=== PATIENT | male | born 1950 | race Caucasian/White ===

== ENCOUNTER 2017-06-21 19:39 | Emergency (ER) | payer OTHER, MEDICARE ==
[2017-06-21] MEDS ORDERED: NA CHLORIDE 0.9% 2,000 ML ONE (20:38)
[2017-06-21] MEDS ORDERED: Levofloxacin 750mg IV 750 MG/150 ML BAG IV ONE (20:39)
[2017-06-21] MEDS ORDERED: VANCOMYCIN/NS 1 gm 1 GM/250 ML BAG ONE (20:39)
[2017-06-21] MEDS ORDERED: PIPER/TAZO/NS 2.25gm 4.50 GM/100 ML BAG ONE (20:39)
[2017-06-21 21:02] LABS: Absolute Lymphocytes (CBC) 1.7 K/uL (0.7-4.9); Absolute Monocytes 0.9 K/uL (0.1-1.3); Absolute Neutrophil 6.1 K/uL (1.8-8.0); Basophils % 0.6 % (0-1.3); Eosinophils % 2.3 % (0-4.4); Hematocrit 38.5 % (39.6-49.0); Lymphocytes % 18.8 % (15.3-44.8); MCH 27.4 pg (27.0-35.0); MCV 83.4 fL (80-100); MPV 9.4 fL (7.6-11.3); Monocytes % 9.7 % (3.3-12.3); RBC Red Blood Cell Count 4.62 M/uL (4.33-5.43)
--- NOTE | 2017-06-21 21:09 | RAD REPORT ---
EXAM DESCRIPTION: RAD - Foot Right 3 View - 06/21/2017 8:49 pm CLINICAL HISTORY: Diabetic foot ulcer, possible osteomyelitis, nonhealing wound COMPARISON: None. FINDINGS: No fracture, dislocation or periosteal reaction. Second toe has been resected. There are p ostsurgical or remodeling changes to the second metatarsal head. No active process in this region. No acute or destructive bone process seen. Soft tissues of the distal foot are edematous. No air or foreign body in the soft tissues. IMPRESSION: No acute or destructive bone process. No osteomyelitis changes are seen. Bone infection can exist prior to radiographic bone destruction. Soft tissue swelling with no air or foreign body.
[2017-06-21 21:21] LABS: Albumin 4.1 g/dL (3.2-5.5); Bilirubin Total 0.7 mg/dL (0.3-1.2); Protein, Total 7.8 g/dL (6.0-8.3)
--- NOTE | 2017-06-21 22:02 | EDPHYS ---
Physician Documentation [facility] Name: Martin Bettencourt Jr Age: 66 yrs Sex: Male : 1950 Arrival Date: 06/21/2017 Time: 19:43 Bed 18 Private MD: ED Physician Emigdio Muller HPI: 06/21 20:08 This 66 yrs old Male presents to ER via Ambulatory with complaints of Foot ps1 Infection (Wound Care PT). 20:08 The patient presents with an abrasion, pain, that is acute, tenderness, non healing ps1 wound. History of same. Now has redness and warmth of right foot. . The complaints affect the right foot. Onset: The symptoms/episode began/occurred 1 day(s) ago. Associated signs and symptoms: Pertinent positives: swelling, warmth, Pertinent negatives: fever. Severity of symptoms: At their worst the symptoms were moderate. The patient has experienced a previous episode. Pt of Dr. Jj ([facility]) in [place]. Has a chronic ulcer on ball of foot. Now has redness and swelling with skin flap on dorsum of foot. . Historical: - Allergies: 20:04 No Known Allergies; bb - Home Meds: 20:04 Glipizide Oral [Active]; Lovastatin Oral [Active]; levothyroxine oral [Active]; bb omeprazole 40 mg Oral cpDR 1 cap once daily [Active]; - PMHx: 20:04 Diabetes - NIDDM; GERD; High Cholesterol; bb - PSHx: 20:04 Cholecystectomy; toe amputation right foot; bb - Immunization history:: Adult Immunizations up to date. - Social history:: Smoking status: Patient/guardian denies using tobacco. ROS: 20:08 MS/extremity: Positive for erythema, pain, swelling, ulcer, of the ball of right foot. ps1 20:08 Constitutional: Negative for fever, chills, and weight loss, Eyes: Negative for injury, pain, redness, and discharge, ENT: Negative for injury, pain, and discharge, Cardiovascular: Negative for chest pain, palpitations, and edema, Respiratory: Negative for shortness of breath, cough, wheezing, and pleuritic chest pain, Abdomen/GI: Negative for abdominal pain, nausea, vomiting, diarrhea, and constipation, Back: Negative for injury and pain, MS/Extremity: Negative for injury and deformity, Neuro: Negative for headache, weakness, numbness, tingling, and seizure. Exam: 20:08 Constitutional: This is a well developed, well nourished patient who is awake, alert, ps1 and in no acute distress. Head/Face: Normocephalic, atraumatic. Eyes: Pupils equal round and reactive to light, extra-ocular motions intact. Lids and lashes normal. Conjunctiva and sclera are non-icteric and not injected. Chest/axilla: Normal chest wall appearance and motion. Nontender with no deformity. No lesions are appreciated. Cardiovascular: Regular rate and rhythm. No gallops, murmurs, or rubs. Normal PMI, no JVD. No pulse deficits. Respiratory: Lungs have equal breath sounds bilaterally, clear to auscultation and percussion. No rales, rhonchi or wheezes noted. No increased work of breathing, no retractions or nasal flaring. Abdomen/GI: Soft, non-tender, with normal bowel sounds. No distension or tympany. No guarding or rebound. No evidence of tenderness throughout. 20:08 MS/ Extremity: Pulses equal, no cyanosis. Neurovascular intact. Full, normal range of motion. Neuro: Awake and alert, GCS 15, oriented to person, place, time, and situation. Cranial nerves II-XII grossly intact. Sensory grossly intact. Psych: Awake, alert, with orientation to person, place and time. Behavior, mood, and affect are within normal limits. 20:08 Skin: cellulitis, that is moderate, on the dorsum of right foot, lesion(s), noted, and can be described as ulcerated, located on the ball of right foot. Vital Signs: 20:04 BP 153 / 76; Pulse 78; Resp 18 S; Temp 98.6(O); Pulse Ox 96% on R/A; Weight 106.59 kg bb (R); Height 5 ft. 11 in. (180.34 cm) (R); Pain 0/10; 21:02 BP 144 / 80; Pulse 67; Resp 18; Pulse Ox 95% on R/A; Pain 0/10; aa1 22:13 BP 157 / 77; Pulse 62; Resp 18; Pulse Ox 97% on R/A; aa1 06/22 00:57 BP 136 / 83; Pulse 60; Resp 16; Pulse Ox 97% on R/A; Pain 0/10; aa1 06/21 20:04 Body Mass Index 32.78 (106.59 kg, 180.34 cm) bb MDM: 06/21 20:08 Data reviewed: vital signs, nurses notes. ps1 20:15 Patient medically screened. ps1 06/21 20:15 Order name: CBC with Diff; Complete Time: 21:22 ps1 06/21 20:15 Order name: CMP; Complete Time: : ps1 06/21 20:15 Order name: Foot Right 3 View XRAY; Complete Time: 21:15 ps1 06/21 20:15 Order name: ESR; Complete Time: : ps1 06/21 20:15 Order name: Blood Culture Adult (2) ps1 Administered Medications: 21:03 Drug: NS 0.9% (20 ml/kg) 20 ml/kg Route: IV; Rate: 1 bolus; Site: right forearm; aa1 22:56 Follow up: IV Status: Completed infusion aa 21:10 Drug: vancoMYCIN 1 grams Route: IVPB; Infused Over: 2 hrs; Site: right forearm; aa1 23:36 Follow up: IV Status: Completed infusion aa1 21:10 Drug: LevaQUIN 750 mg Volume: 150 ml; Route: IVPB; Infused Over: 90 mins; Site: right aa1 forearm; 22:37 Follow up: IV Status: Completed infusion aa1 23:36 Drug: Zosyn 4.5 grams Route: IVPB; Infused Over: 60 mins; Site: right forearm; aa1 06/22 00:56 Follow up: IV Status: Completed infusion aa Disposition: 06/21/17 22:01 Discharged to Home. Impression: cellulitis of right foot. Non-healing wound of right foot. . - Condition is Stable. - Discharge Instructions: Cellulitis. - Prescriptions for Keflex 500 mg Oral Capsule - take 1 capsule by ORAL route every 6 hours for 10 days; 40 capsule. Bactrim DS 800- 160 mg Oral Tablet - take 1 tablet by ORAL route every 12 hours for 10 days; 20 tablet. - Medication Reconciliation Form, Thank You Letter, Antibiotic Education, Prescription Opioid Use form. - Follow up: Felice Chaidez MD; When: Upon discharge from the Emergency Department; Reason: Wound Recheck, Recheck today's complaints, Continuance of care. Follow up: Emergency Department; When: As needed; Reason: Worsening of condition, increased diameter of cellulitis. chills. . - Problem is an acute exacerbation. - Symptoms are unchanged. Signatures: Dispatcher [employer] Rashmi Potter, RN RN aa1 Stormy Gil RN RN bb Emigdio Muller MD MD ps1
--- NOTE | 2017-06-21 22:02 | ER ---
Nurse's Notes [facility] Name: Martin Bettencourt Jr Age: 66 yrs Sex: Male : 1950 Arrival Date: 06/21/2017 Time: 19:43 Bed 18 Private MD: Diagnosis: cellulitis of right foot. Non-healing wound of right foot. Presentation: 06/21 20:01 Presenting complaint: Patient states: he has diabetic foot ulcer on bottom of right bb foot which has been being treated for a year now has a new wound developing next to it and it is reddened. Transition of care: patient was not received from another setting of care. Onset of symptoms. Care prior to arrival: None. 20:01 Method Of Arrival: Ambulatory bb 20:01 Acuity: CRIS 3 bb Historical: - Allergies: 20:04 No Known Allergies; bb - Home Meds: 20:04 Glipizide Oral [Active]; Lovastatin Oral [Active]; levothyroxine oral [Active]; bb omeprazole 40 mg Oral cpDR 1 cap once daily [Active]; - PMHx: 20:04 Diabetes - NIDDM; GERD; High Cholesterol; bb - PSHx: 20:04 Cholecystectomy; toe amputation right foot; bb - Immunization history:: Adult Immunizations up to date. - Social history:: Smoking status: Patient/guardian denies using tobacco. Assessment: 22:03 Reassessment: Patient appears in no apparent distress at this time. Patient and/or aa1 family updated on plan of care and expected duration. Pain level reassessed. Patient is alert, oriented x 3, equal unlabored respirations, skin warm/dry/pink. Vancomycin and Levaquin infusing. Once complete pt to receive Zosyn and then d/c once Zosyn complete. 22:56 Reassessment: Patient appears in no apparent distress at this time. Patient and/or aa1 family updated on plan of care and expected duration. Pain level reassessed. Patient is alert, oriented x 3, equal unlabored respirations, skin warm/dry/pink. Vancomycin near completion. Will administer Zosyn once Vanc complete. Pt pending d/c upon completion of Zosyn. 06/22 00:57 Reassessment: Patient appears in no apparent distress at this time. Patient is alert, aa1 oriented x 3, equal unlabored respirations, skin warm/dry/pink. IV Zosyn complete. Discussed dic \T\ f/u instructions with pt; denies questions or concerns. Vital Signs: 06/21 20:04 BP 153 / 76; Pulse 78; Resp 18 S; Temp 98.6(O); Pulse Ox 96% on R/A; Weight 106.59 kg bb (R); Height 5 ft. 11 in. (180.34 cm) (R); Pain 0/10; 21:02 BP 144 / 80; Pulse 67; Resp 18; Pulse Ox 95% on R/A; Pain 0/10; aa1 22:13 BP 157 / 77; Pulse 62; Resp 18; Pulse Ox 97% on R/A; aa1 06/22 00:57 BP 136 / 83; Pulse 60; Resp 16; Pulse Ox 97% on R/A; Pain 0/10; aa1 06/21 20:04 Body Mass Index 32.78 (106.59 kg, 180.34 cm) bb ED Course: 06/21 19:43 Patient arrived in ED. ds1 20:02 Triage completed. bb 20:04 Eliseo Romano MD is Attending Physician. kdr 20:04 Arm band placed on Patient placed in an exam room, on a stretcher, on pulse oximetry. bb Family accompanied patient. 20:07 Attending Physician role handed off by Eliseo Roamno MD ps1 20:07 Emigdio Muller MD is Attending Physician. ps1 20:15 Rashmi Bustos, CHERELLE is Primary Nurse. aa1 20:45 X-ray completed. Portable x-ray completed in exam room. Patient tolerated procedure kc2 well. 20:49 Foot Right 3 View XRAY In Process Unspecified. EDMS 20:50 Initial lab(s) drawn, by ED staff, sent to lab. First set of blood cultures drawn by ED aa1 staff. Inserted saline lock: 20 gauge in right forearm, using aseptic technique. ,using aseptic technique. by isaac Brar Blood collected. 22:01 Felice Chaidez MD is Referral Physician. ps1 06/22 00:57 No provider procedures requiring assistance completed. IV discontinued, intact, aa1 bleeding controlled, No redness/swelling at site. Pressure dressing applied. Administered Medications: 06/21 21:03 Drug: NS 0.9% (20 ml/kg) 20 ml/kg Route: IV; Rate: 1 bolus; Site: right forearm; aa1 22:56 Follow up: IV Status: Completed infusion aa1 21:10 Drug: vancoMYCIN 1 grams Route: IVPB; Infused Over: 2 hrs; Site: right forearm; aa1 23:36 Follow up: IV Status: Completed infusion aa1 21:10 Drug: LevaQUIN 750 mg Volume: 150 ml; Route: IVPB; Infused Over: 90 mins; Site: right aa1 forearm; 22:37 Follow up: IV Status: Completed infusion aa1 23:36 Drug: Zosyn 4.5 grams Route: IVPB; Infused Over: 60 mins; Site: right forearm; aa1 06/22 00:56 Follow up: IV Status: Completed infusion aa1 Intake: 06/21 22:57 IV: 2000ml (IV Fluid); Total: 2000ml. aa1 Outcome: 22:01 Discharge ordered by . ps1 06/22 00:57 Discharged to home ambulatory, with family. aa1 Condition: good Discharge instructions given to patient, family, Instructed on discharge instructions, follow up and referral plans. medication usage, Demonstrated understanding of instructions, follow-up care, medications, Prescriptions given X 2. 00:58 Patient left the ED. aa1 Signatures: Dispatcher [employer] Rashmi Potter RN RN aa1 Eliseo Romano MD MD [facility] Jay, Caren ds1 Stormy Gil RN RN bb Carr, Kelsie kc2 Emigdio Muller MD MD ps1
[2017-06-22 01:02] VITALS: TEMP 98.6
[2017-06-22 01:05] VITALS: O2SAT 97
[2017-06-22 01:06] VITALS: BP 136/83
== END 2017-06-22 00:58 | disposition home or self-care (01) ==
LOC: ER 19:39
DX: L03.115 Cellulitis of right lower limb (principal); T81.4XXA Infection following a procedure, initial encounter; E11.9 Type 2 diabetes mellitus without complications; E78.00 Pure hypercholesterolemia, unspecified; Z89.421 Acquired absence of other right toe(s)
CPT/HCPCS: 36415; 73630; 80053; 85025; 85652; 87040 ×2; 96365; 96366; 96367; 96368; 99284; J2543; J3370; J7030

== ENCOUNTER 2017-10-30 16:08 | Emergency (ER) | payer OTHER, MEDICARE ==
--- NOTE | 2017-10-30 16:37 | EDPHYS ---
Physician Documentation [facility] Name: Martin Bettencourt Jr Age: 67 yrs Sex: Male : 1950 Arrival Date: 10/30/2017 Time: 16:12 Bed 20 Private MD: Orville Lawson ED Physician Zaire Paris HPI: 10/30 16:34 This 67 yrs old Male presents to ER via Ambulatory with complaints of Feet jr8 Swelling. 16:34 the patient presents with a swollen area of the right foot. Description: The affected jr8 area is small, erythematous, swollen, warm. Onset: The symptoms/episode began/occurred gradually, 2 day(s) ago. Possible cause(s): unknown. Associated signs and symptoms: The patient has no apparent associated signs or symptoms. Modifying factors: the symptoms are alleviated by nothing, the symptoms are aggravated by nothing. Severity of symptoms: At their worst the symptoms were mild, in the emergency department the symptoms are unchanged. The patient has experienced a previous episode. The patient has not recently seen a physician. Patient with diabetic neuropathy. Has healing wound on bottom of right foot. Stated that he has noticed swelling and erythema to top of foot. Has had this once before and ended up being cellulitis . Historical: - Allergies: 16:20 No Known Allergies; aj1 - Home Meds: 16:20 Glipizide Oral [Active]; levothyroxine oral [Active]; Lovastatin Oral [Active]; aj1 omeprazole 40 mg Oral cpDR 1 cap once daily [Active]; - PMHx: 16:20 Diabetes - NIDDM; GERD; High Cholesterol; renal insufficiency; aj1 - Immunization history:: Flu vaccine is up to date. - Social history:: Smoking status: Patient/guardian denies using tobacco. - Ebola Screening: : Patient denies travel to an Ebola-affected area in the 21 days before illness onset. ROS: 16:34 Eyes: Negative for injury, pain, redness, and discharge, ENT: Negative for injury, jr8 pain, and discharge, Neck: Negative for injury, pain, and swelling, Cardiovascular: Negative for chest pain, palpitations, and edema, Respiratory: Negative for shortness of breath, cough, wheezing, and pleuritic chest pain, Abdomen/GI: Negative for abdominal pain, nausea, vomiting, diarrhea, and constipation, Back: Negative for injury and pain, MS/Extremity: Negative for injury and deformity, Neuro: Negative for headache, weakness, numbness, tingling, and seizure. 16:34 Skin: Positive for erythema, swelling, of the right foot. Exam: 16:34 Eyes: Pupils equal round and reactive to light, extra-ocular motions intact. Lids and jr8 lashes normal. Conjunctiva and sclera are non-icteric and not injected. Cornea within normal limits. Periorbital areas with no swelling, redness, or edema. ENT: Nares patent. No nasal discharge, no septal abnormalities noted. Tympanic membranes are normal and external auditory canals are clear. Oropharynx with no redness, swelling, or masses, exudates, or evidence of obstruction, uvula midline. Mucous membranes moist. Neck: Trachea midline, no thyromegaly or masses palpated, and no cervical lymphadenopathy. Supple, full range of motion without nuchal rigidity, or vertebral point tenderness. No Meningismus. Cardiovascular: Regular rate and rhythm with a normal S1 and S2. No gallops, murmurs, or rubs. Normal PMI, no JVD. No pulse deficits. Respiratory: Lungs have equal breath sounds bilaterally, clear to auscultation and percussion. No rales, rhonchi or wheezes noted. No increased work of breathing, no retractions or nasal flaring. Abdomen/GI: Soft, non-tender, with normal bowel sounds. No distension or tympany. No guarding or rebound. No evidence of tenderness throughout. Back: No spinal tenderness. No costovertebral tenderness. Full range of motion. MS/ Extremity: Pulses equal, no cyanosis. Neurovascular intact. Full, normal range of motion. Neuro: Awake and alert, GCS 15, oriented to person, place, time, and situation. Cranial nerves II-XII grossly intact. Motor strength 5/5 in all extremities. Sensory grossly intact. Cerebellar exam normal. Normal gait. 16:34 Skin: cellulitis, that is mild, well demarcated, on the lateral dorsum right foot with streaking . Vital Signs: 16:20 BP 127 / 72; Pulse 77; Resp 18; Temp 99.2(TE); Pulse Ox 98% on R/A; Height 5 ft. 11 in. aj1 (180.34 cm) (R); Pain 0/10; MDM: 16:23 Patient medically screened. jr8 16:34 Data reviewed: vital signs, nurses notes, and as a result, I will discharge patient. jr8 Data interpreted: Pulse oximetry: on room air is 98 %. Interpretation: normal. Counseling: I had a detailed discussion with the patient and/or guardian regarding: the historical points, exam findings, and any diagnostic results supporting the discharge/admit diagnosis, the need for outpatient follow up, a family practitioner, to return to the emergency department if symptoms worsen or persist or if there are any questions or concerns that arise at home. Administered Medications: No medications were administered Disposition: 10/31 14:32 Co-signature as Attending Physician, Zaire Paris MD I agree with the assessment and kelvin plan of care. Disposition: 10/30/17 16:36 Discharged to Home. Impression: Cellulitis of right lower limb. - Condition is Stable. - Discharge Instructions: Cellulitis, Adult. - Prescriptions for Bactrim DS 800- 160 mg Oral Tablet - take 1 tablet by ORAL route every 12 hours for 10 days; 20 tablet. - Medication Reconciliation Form, Thank You Letter, Antibiotic Education, Prescription Opioid Use form. - Follow up: Orville Lawson DO; When: 5 - 6 days; Reason: Recheck today's complaints, Continuance of care, Re-evaluation by your physician. - Problem is new. - Symptoms are unchanged. Signatures: Sari Ortega, RN RN aj1 Zaire Paris MD MD cha Munoz, Edgar, PREVENTION COORDINATOR PREVENTION COORDINATOR em Guy Canales PA PA jr8 Corrections: (The following items were deleted from the chart) 10/30 16:37 16:36 10/30/2017 16:36 Discharged to Home. Impression: Cellulitis of left lower limb. jr8 Condition is Stable. Forms are Medication Reconciliation Form, Thank You Letter, Antibiotic Education, Prescription Opioid Use. Follow up: Orville Lawson; When: 5 - 6 days; Reason: Recheck today's complaints, Continuance of care, Re-evaluation by your physician. Problem is new. Symptoms are unchanged. jr8 17:08 16:37 10/30/2017 16:36 Discharged to Home. Impression: Cellulitis of right lower limb. em Condition is Stable. Forms are Medication Reconciliation Form, Thank You Letter, Antibiotic Education, Prescription Opioid Use. Follow up: Orville Lawson; When: 5 - 6 days; Reason: Recheck today's complaints, Continuance of care, Re-evaluation by your physician. Problem is new. Symptoms are unchanged. jr8
--- NOTE | 2017-10-30 16:37 | ER ---
Nurse's Notes [facility] Name: Martin Bettencourt Jr Age: 67 yrs Sex: Male : 1950 Arrival Date: 10/30/2017 Time: 16:12 Bed 20 Private MD: Orville Lawson Diagnosis: Cellulitis of right lower limb Presentation: 10/30 16:15 Presenting complaint: Patient states: "My foot looks to me like it's swelling. I was in aj1 here several months ago for the same thing. I've had this hole in the bottom of my foot for a year and they keep cutting on it. I don't want to end up with a bone infection. I've already had one and I wanted to get antibiotics before this get that bad." Reports fever. Transition of care: patient was not received from another setting of care. Onset of symptoms was October 30, 2017. Risk Assessment: Do you want to hurt yourself or someone else? Patient reports no desire to harm self or others. Initial Sepsis Screen: Does the patient meet any 2 criteria? No. Patient's initial sepsis screen is negative. Does the patient have a suspected source of infection? No. Patient's initial sepsis screen is negative. Care prior to arrival: None. 16:15 Method Of Arrival: Ambulatory [facility] 16:15 Acuity: CRIS 3 aj1 Triage Assessment: 16:20 General: Appears in no apparent distress. comfortable, Behavior is calm, cooperative, aj1 appropriate for age. Pain: Denies pain. Neuro: Level of Consciousness is awake, alert, obeys commands. Cardiovascular: Patient's skin is warm and dry. Respiratory: Airway is patent Respiratory effort is even, unlabored, Respiratory pattern is regular, symmetrical. Historical: - Allergies: 16:20 No Known Allergies; aj1 - Home Meds: 16:20 Glipizide Oral [Active]; levothyroxine oral [Active]; Lovastatin Oral [Active]; aj1 omeprazole 40 mg Oral cpDR 1 cap once daily [Active]; - PMHx: 16:20 Diabetes - NIDDM; GERD; High Cholesterol; renal insufficiency; aj1 - Immunization history:: Flu vaccine is up to date. - Social history:: Smoking status: Patient/guardian denies using tobacco. - Ebola Screening: : Patient denies travel to an Ebola-affected area in the 21 days before illness onset. Screenin:40 Abuse screen: Denies threats or abuse. Nutritional screening: No deficits noted. iw Tuberculosis screening: No symptoms or risk factors identified. Fall Risk None identified. Assessment: 16:40 General: Appears in no apparent distress. comfortable, Behavior is calm, cooperative. em Pain: Denies pain. Neuro: Level of Consciousness is awake, alert, obeys commands, Oriented to person, place, time, situation. Cardiovascular: Capillary refill < 3 seconds Patient's skin is warm and dry. Respiratory: Airway is patent Respiratory effort is even, unlabored, Respiratory pattern is regular, symmetrical. GI: Abdomen is flat. : No signs and/or symptoms were reported regarding the genitourinary system. EENT: No signs and/or symptoms were reported regarding the EENT system. Derm: Skin is pink, warm \\T\\ dry. Decubitus located on right foot approximately 1.5 cm to 2.5 cm is unstageable. bed has fibrin present is draining none noted. Musculoskeletal: Range of motion: intact in all extremities. Vital Signs: 16:20 BP 127 / 72; Pulse 77; Resp 18; Temp 99.2(TE); Pulse Ox 98% on R/A; Height 5 ft. 11 in. aj1 (180.34 cm) (R); Pain 0/10; ED Course: 16:12 Patient arrived in ED. mr 16:12 Orville Lawson DO is Private Physician. mr 16:19 Triage completed. aj1 16:20 Arm band placed on Patient placed in an exam room. aj1 16:23 Guy Canales PA is PHCP. jr8 16:23 Zaire Paris MD is Attending Physician. jr8 16:36 Orville Lawson DO is Referral Physician. jr8 16:40 Patient has correct armband on for positive identification. Placed in gown. Bed in low iw position. Call light in reach. Adult w/ patient. 16:40 No provider procedures requiring assistance completed. Patient did not have IV access iw during this emergency room visit. 17:02 Tianna Atkins, RN is Primary Nurse. iw Administered Medications: No medications were administered Outcome: 16:36 Discharge ordered by . jr8 17:04 Discharged to home ambulatory. iw 17:04 Condition: good 17:04 Discharge instructions given to patient, family, Instructed on discharge instructions, follow up and referral plans. medication usage, Demonstrated understanding of instructions, follow-up care, medications, Prescriptions given X 1. 17:08 Patient left the ED. em Signatures: Sari Ortega, RN RN aj1 Smiley Dejesus mr Jones, Dakota, SUPERVISOR SHOP SUPERVISOR SHOP em Tianna Atkins RN RN iw Guy Canales PA PA jr8
[2017-10-30 17:18] VITALS: BP 127/72; TEMP 99.2; O2SAT 98
== END 2017-10-30 17:08 | disposition home or self-care (01) ==
LOC: ER 16:08
DX: L03.115 Cellulitis of right lower limb (principal); E11.9 Type 2 diabetes mellitus without complications
CPT/HCPCS: 99282

== ENCOUNTER 2017-11-08 14:58 | Inpatient (IN) | payer OTHER, MEDICARE ==
--- NOTE | 2017-11-08 16:44 | EDPHYS ---
Physician Documentation [facility] Name: Martin Bettencourt Jr Age: 67 yrs Sex: Male : 1950 Arrival Date: 11/08/2017 Time: 15:02 Bed 18 Private MD: Orville Lawson ED Physician Pablo Jimenez HPI: 11/08 19:48 This 67 yrs old Male presents to ER via Ambulatory with complaints of TOE tw4 INFECTION. 19:48 The patient presents with cellulitis of the right foot, the patient presents with a tw4 swollen area of the right fourth toe and right fifth toe. Description: The affected area is moderate sized, confluent, draining, erythematous. Onset: The symptoms/episode began/occurred 1 week(s) ago. Possible cause(s): unknown. Associated signs and symptoms: The patient has no apparent associated signs or symptoms. Modifying factors: the symptoms are alleviated by nothing, the symptoms are aggravated by nothing. Severity of symptoms: At their worst the symptoms were moderate, in the emergency department the symptoms are unchanged. The patient has not experienced similar symptoms in the past. Historical: - Allergies: 15:20 No Known Allergies; aj1 - Home Meds: 15:20 Cipro Oral [Active]; Glipizide Oral [Active]; levothyroxine oral [Active]; Lovastatin aj1 Oral [Active]; omeprazole 40 mg Oral cpDR 1 cap once daily [Active]; - PMHx: 15:20 Diabetes - NIDDM; GERD; High Cholesterol; renal insufficiency; aj1 - Immunization history:: Flu vaccine is up to date. - Social history:: Smoking status: Patient/guardian denies using tobacco. - Ebola Screening: : Patient denies travel to an Ebola-affected area in the 21 days before illness onset. ROS: 19:48 Constitutional: Negative for fever, chills, and weight loss, Cardiovascular: Negative tw4 for chest pain, palpitations, and edema, Respiratory: Negative for shortness of breath, cough, wheezing, and pleuritic chest pain, Abdomen/GI: Negative for abdominal pain, nausea, vomiting, diarrhea, and constipation, Back: Negative for injury and pain. 19:48 MS/extremity: Positive for pain, of the right fourth toe and right fifth toe. Exam: 19:48 Constitutional: This is a well developed, well nourished patient who is awake, alert, tw4 and in no acute distress. Head/Face: Normocephalic, atraumatic. Chest/axilla: Normal chest wall appearance and motion. Nontender with no deformity. No lesions are appreciated. Cardiovascular: Regular rate and rhythm with a normal S1 and S2. No gallops, murmurs, or rubs. Normal PMI, no JVD. No pulse deficits. Respiratory: Lungs have equal breath sounds bilaterally, clear to auscultation and percussion. No rales, rhonchi or wheezes noted. No increased work of breathing, no retractions or nasal flaring. Abdomen/GI: Soft, non-tender, with normal bowel sounds. No distension or tympany. No guarding or rebound. No evidence of tenderness throughout. 19:48 Musculoskeletal/extremity: Extremities: noted in the right fourth toe and right fifth toe: erythema, pain. Vital Signs: 15:20 BP 127 / 69; Pulse 79; Resp 18; Temp 98.9; Pulse Ox 95% on R/A; Weight 104.33 kg; aj1 Height 5 ft. 11 in. (180.34 cm); Pain 0/10; 17:18 BP 127 / 64; Pulse 73; Resp 16; Pulse Ox 98% on R/A; mh5 19:18 BP 127 / 72; Pulse 74; Resp 16; Pulse Ox 97% on R/A; mt 20:12 BP 126 / 68; Pulse 76; Resp 18; Temp 98.4(O); Pulse Ox 97% on R/A; Pain 0/10; ea 15:20 Body Mass Index 32.08 (104.33 kg, 180.34 cm) aj1 MDM: 15:37 Patient medically screened. tw4 19:52 Differential diagnosis: abscess, allergic reaction, cellulitis. Data reviewed: vital tw4 signs, nurses notes. Data interpreted: personnel monitor: rhythm is normal sinus rhythm, Pulse oximetry: Interpretation: normal. Counseling: I had a detailed discussion with the patient and/or guardian regarding: the historical points, exam findings, and any diagnostic results supporting the discharge/admit diagnosis, lab results, radiology results. Physician consultation: Dario Beltrán MD and will see patient in inpatient room, would like consultation with Dr. Dr Chaidez, would like medications started, Zosyn, Vancomycin. Admission orders: after a detailed discussion of the patient's condition and case, the admit orders are written by va. 11/08 16:39 Order name: Basic Metabolic Panel tw4 11/08 16:39 Order name: Blood Culture Adult (2) tw4 11/08 16:39 Order name: Lactate; Complete Time: 19:12 tw4 11/08 16:39 Order name: LFT's; Complete Time: 19:12 tw4 11/08 16:39 Order name: Sed Rate; Complete Time: 19:12 tw4 11/08 16:39 Order name: C-Reactive Protein; Complete Time: 19:12 tw4 11/08 16:39 Order name: Accucheck; Complete Time: 17:15 tw4 11/08 16:40 Order name: Basic Metabolic Panel; Complete Time: 19:12 EDMS 11/08 16:40 Order name: Foot Left 3 View XRAY tw4 11/08 17:40 Order name: RAD; Complete Time: 19:12 EDMS 11/08 17:59 Order name: CBC with Diff bd 11/08 18:13 Order name: CBC with Automated Diff; Complete Time: 19:12 EDMS 11/08 16:39 Order name: Cardiac monitoring; Complete Time: 17:15 tw4 11/08 16:39 Order name: IV Saline Lock - Large Bore; Complete Time: 17:15 tw4 11/08 16:39 Order name: Labs collected and sent; Complete Time: 17:15 tw4 Administered Medications: 17:15 Drug: Zosyn 3.375 grams Route: IVPB; Infused Over: 60 mins; Site: left forearm; ch 18:15 Follow up: IV Status: Completed infusion; IV Intake: 100ml ch 19:00 Drug: vancoMYCIN 1 grams Route: IVPB; Infused Over: 2 hrs; Site: left forearm; ch 20:14 Follow up: Response: No adverse reaction; IV Status: Infusion continued upon admission ea Disposition: 11/08/17 16:44 Hospitalization ordered by Dario Beltrán for Inpatient Admission. Preliminary diagnosis is Cellulitis of right lower limb. - Bed requested for Telemetry/MedSurg (Inpatient). - Status is Inpatient Admission. ea - Condition is Fair. - Problem is new. - Symptoms are unchanged. UTI on Admission? No Signatures: Dispatcher [employer] EDCeci Parkinson RN RN Sari Alvarado, RN RN aj1 Grace Harris, RN RN df Lizz Garcia RN RN ea Wadley, Terrence, MD MD tw4 Corrections: (The following items were deleted from the chart) 19:14 16:44 Hospitalization Ordered by Dario Beltrán MD for Inpatient Admission. Preliminary df diagnosis is Cellulitis of right lower limb. Bed requested for Telemetry/MedSurg (Inpatient). Status is Inpatient Admission. Condition is Fair. Problem is new. Symptoms are unchanged. UTI on Admission? No. tw4 20:14 19:14 11/08/2017 16:44 Hospitalization Ordered by Dario Beltrán MD for Inpatient ea Admission. Preliminary diagnosis is Cellulitis of right lower limb. Bed requested for Telemetry/MedSurg (Inpatient). Status is Inpatient Admission. Condition is Fair. Problem is new. Symptoms are unchanged. UTI on Admission? No. df
--- NOTE | 2017-11-08 16:44 | ER ---
Nurse's Notes [facility] Name: Martin Bettencourt Jr Age: 67 yrs Sex: Male : 1950 Arrival Date: 11/08/2017 Time: 15:02 Bed 18 Private MD: Orville Lawson Diagnosis: Cellulitis of right lower limb Presentation: 11/08 15:17 Presenting complaint: Patient states: He saw Dr. Chaidez today at the wound healing [facility] and was told that the infection in his foot was worse and he suspected that the infection may have gone to the bone. Denies pain. Transition of care: patient was not received from another setting of care. Onset of symptoms was November 08, 2017. Risk Assessment: Do you want to hurt yourself or someone else? Patient reports no desire to harm self or others. Initial Sepsis Screen: Does the patient meet any 2 criteria? No. Patient's initial sepsis screen is negative. Does the patient have a suspected source of infection? Yes: Skin breakdown/wound. Care prior to arrival: None. 15:17 Method Of Arrival: Ambulatory [facility] 15:17 Acuity: CRIS 3 [facility] Triage Assessment: 15:20 General: Appears in no apparent distress. comfortable, Behavior is calm, cooperative, aj1 appropriate for age. Pain: Denies pain. Neuro: Level of Consciousness is awake, alert, obeys commands. Cardiovascular: Patient's skin is warm and dry. Respiratory: Airway is patent Respiratory effort is even, unlabored, Respiratory pattern is regular, symmetrical. Historical: - Allergies: 15:20 No Known Allergies; aj1 - Home Meds: 15:20 Cipro Oral [Active]; Glipizide Oral [Active]; levothyroxine oral [Active]; Lovastatin aj1 Oral [Active]; omeprazole 40 mg Oral cpDR 1 cap once daily [Active]; - PMHx: 15:20 Diabetes - NIDDM; GERD; High Cholesterol; renal insufficiency; aj1 - Immunization history:: Flu vaccine is up to date. - Social history:: Smoking status: Patient/guardian denies using tobacco. - Ebola Screening: : Patient denies travel to an Ebola-affected area in the 21 days before illness onset. Screenin:30 Abuse screen: Denies threats or abuse. Denies injuries from another. Nutritional ch screening: No deficits noted. Tuberculosis screening: No symptoms or risk factors identified. Fall Risk None identified. Assessment: 17:09 Reassessment: Patient appears in no apparent distress at this time. Patient and/or family updated on plan of care and expected duration. Pain level reassessed. Patient is alert, oriented x 3, equal unlabored respirations, skin warm/dry/pink. Derm: Wound noted Wound is pt has dime sized open wound with pink granular tissue protruding from it. pt has redness and moderate amount of swelling to entire lateral side of foot, and top of foot. no streaking. 18:30 Reassessment: Patient appears in no apparent distress at this time. No changes from previously documented assessment. Patient and/or family updated on plan of care and expected duration. Pain level reassessed. Patient is alert, oriented x 3, equal unlabored respirations, skin warm/dry/pink. Patient denies pain at this time. 19:30 General: Appears in no apparent distress. Behavior is calm, cooperative, appropriate ea for age. Pain: Denies pain. Neuro: Level of Consciousness is awake, alert, obeys commands, Oriented to person, place, time, situation. Cardiovascular: Patient's skin is warm and dry. Respiratory: Airway is patent Respiratory effort is even, unlabored, Respiratory pattern is regular, symmetrical. GI: No signs and/or symptoms were reported involving the gastrointestinal system. : No signs and/or symptoms were reported regarding the genitourinary system. EENT: No signs and/or symptoms were reported regarding the EENT system. Derm: Wound noted Wound is redness and swelling to lateral side of foot and top of foot. Derm: Reports he noticed the redness and swelling started a week ago. 20:05 Reassessment: Patient and/or family updated on plan of care and expected duration. Pain ea level reassessed. Patient is alert, oriented x 3, equal unlabored respirations, skin warm/dry/pink. Report called to Cristina VILLARREAL on second floor. Vital Signs: 15:20 BP 127 / 69; Pulse 79; Resp 18; Temp 98.9; Pulse Ox 95% on R/A; Weight 104.33 kg; aj1 Height 5 ft. 11 in. (180.34 cm); Pain 0/10; 17:18 BP 127 / 64; Pulse 73; Resp 16; Pulse Ox 98% on R/A; mh5 19:18 BP 127 / 72; Pulse 74; Resp 16; Pulse Ox 97% on R/A; mt 20:12 BP 126 / 68; Pulse 76; Resp 18; Temp 98.4(O); Pulse Ox 97% on R/A; Pain 0/10; ea 15:20 Body Mass Index 32.08 (104.33 kg, 180.34 cm) aj1 ED Course: 15:02 Patient arrived in ED. rg4 15:02 Orville Lawson DO is Private Physician. rg4 15:19 Triage completed. aj1 15:21 Arm band placed on Patient placed in an exam room. aj1 15:34 Ceci Carson, RN is Primary Nurse. ch 15:37 Pablo Jimenez MD is Attending Physician. tw4 16:43 Dario Beltrán MD is Hospitalizing Provider. tw4 16:50 Initial lab(s) drawn, by vt, sent to lab. First set of blood cultures drawn. ch 17:09 Inserted saline lock: 18 gauge in left forearm, using aseptic technique. Blood ch collected. 17:24 X-ray completed. Portable x-ray completed in exam room. Patient tolerated procedure ag1 well. 18:30 Patient has correct armband on for positive identification. Bed in low position. Call light in reach. Side rails up X 1. Adult w/ patient. Pulse ox on. NIBP on. 18:30 No provider procedures requiring assistance completed. ch 19:40 Lizz Garcia, CHERELLE is Primary Nurse. ea 20:05 Patient admitted, IV remains in place. ea Administered Medications: 17:15 Drug: Zosyn 3.375 grams Route: IVPB; Infused Over: 60 mins; Site: left forearm; ch 18:15 Follow up: IV Status: Completed infusion; IV Intake: 100ml ch 19:00 Drug: vancoMYCIN 1 grams Route: IVPB; Infused Over: 2 hrs; Site: left forearm; ch 20:14 Follow up: Response: No adverse reaction; IV Status: Infusion continued upon admission ea Intake: 18:15 IV: 100ml; Total: 100ml. ch Outcome: 16:44 Decision to Hospitalize by Provider. tw4 20:06 Condition: stable ea 20:06 Instructed on the need for admit, Demonstrated understanding of instructions. 20:13 Admitted to Med/surg accompanied by tech, room 213, Report called to Cristina VILLARREAL ea 20:14 Patient left the ED. nelson Signatures: Ceci Carson, RN Sari Silveira ch RN RN ngoc1 Roberta Rene1 Tracy Villasenor 4 Juan, Smiley 5 Michael, [facility] Lizz Garcia RN Pablo Benton ea, MD MD tw4
[2017-11-08] MEDS ORDERED: VANCOMYCIN 1 GM/250 ML BAG ONE ×2 (17:21→23:26)
[2017-11-08] MEDS ORDERED: PIPER/TAZO/NS 3.375gm 3.375 GM/100 ML BAG ONE (17:21)
--- NOTE | 2017-11-08 17:39 | RAD REPORT ---
EXAM DESCRIPTION: RAD - Foot Left 3 View - 11/08/2017 5:28 pm CLINICAL HISTORY: Soft tissue wound,, possible osteomyelitis COMPARISON: Right foot May 2017 FINDINGS: Bone destructive changes are present involving the head and distal shaft fifth metatarsal. There is subtle irregularity of the base fifth proximal phalanx. Soft tissue wound is seen adjacent to the fifth MTP joint. No air or foreign body. Postsurgical change noted to the second metatarsal head with second toe resection. IMPRESSION: Bone destructive osteomyelitis distal fifth metatarsal and very likely within the base o f the fifth proximal phalanx.
[2017-11-08 18:13] LABS: Absolute Lymphocytes (CBC) 1.3 K/uL (0.7-4.9); Absolute Monocytes 0.9 K/uL (0.1-1.3); Basophils % 0.4 % (0-1.3); Eosinophils % 0.6 % (0-4.4); Hematocrit 37.5 % (39.6-49.0); Lymphocytes % 15.7 % (15.3-44.8); MCH 27.6 pg (27.0-35.0); MCV 85.9 fL (80-100); MPV 9.1 fL (7.6-11.3); Monocytes % 10.8 % (3.3-12.3); RBC Red Blood Cell Count 4.37 M/uL (4.33-5.43)
[2017-11-08 18:33] LABS: Albumin 3.4 g/dL (3.4-5.0); Bilirubin Direct 0.1 mg/dL (0-0.2); Bilirubin Total 0.3 mg/dL (0.2-1.0); C-Reactive Protein 64.3 mg/L (<3.00); Potassium 4.7 mmol/L (3.5-5.1); Protein, Total 8.6 g/dL (6.4-8.2)
[2017-11-08] MEDS ORDERED: VANCOMYCIN 1GM/D5W 1 GM/200 ML BAG IV ONE ×2 (23:00)
[2017-11-09] MEDS: NA CHLORIDE 0.9% 1,000 ML IV SCH ×2 (09:00→19:00)
[2017-11-09] MEDS ORDERED: NA CHLORIDE 0.9% 1,000 ML ONE (09:47)
[2017-11-09] MEDS: PIPER/TAZO/NS 3.375gm 3.375 GM/100 ML BAG IV SCH ×2 (09:49→17:00)
--- NOTE | 2017-11-09 10:10 | P.HP ---
Certification for Inpatient Patient admitted to: Inpatient With expected LOS: >2 Midnights Patient will require the following post-hospital care: None Practitioner: I am a practitioner with admitting privileges, knowledge of patient current condition, hospital course, and medical plan of care. Services: Services provided to patient in accordance with Admission requirements found in Title 42 Section 412.3 of the Code of Federal Regulations Patient History Date of Service: 11/08/17 Reason for admission: Cellulitis of the right foot History of Present Illness: Patient is a 67-year-old gentleman who is admitted to the hospital with cellulitis of the right foot. Patient has significant erythema and edema. Patient was seen in the wound healing center and sent to the emergency room. Patient will be admitted to the hospital for IV antibiotic therapy. Will also get an MRI. Allergies No Known Allergies Allergy (Verified 11/08/17 20:24) Home Medications: Glipizide [Glipizide Xl] 5 mg PO BID 09/05/14 Lovastatin [Mevacor*] 40 mg PO BEDTIME 09/05/14 Omeprazole [Prilosec] 40 mg PO BEDTIME 09/05/14 Biotin 1,000 mcg PO DAILY 09/13/14 Levothyroxine Sodium 175 mcg PO [id number] 09/13/14 - Past Medical/Surgical History Has patient received pneumonia vaccine in the past: No Diabetic: Yes -: Diabetic -: Kidney problems -: Hypothyroid -: Diabetic foot ulcers -: Barrets esophageal -: GERD -: Ampution of right 2nd toe -: Cholecystectomy -: tooth implants - Family History Father Medical History: Heart disease, Hypertension Mother Medical History: Cancer - Social History Smoking Status: Never smoker Alcohol use: No CD- Drugs: No Caffeine use: Yes Place of Residence: Home Review of Systems 10-point ROS is otherwise unremarkable Physical Examination - Vital Signs Temperature: 97.4 F Blood Pressure: 116/62 Pulse: 63 Respirations: 16 Pulse Ox (%): 97 - Physical Exam General: Alert, In no apparent distress, Oriented x3 HEENT: Atraumatic, PERRLA, Mucous membr. moist/pink, EOMI, Sclerae nonicteric Neck: Supple, 2+ carotid pulse no bruit, No LAD, Without JVD or thyroid abnormality Respiratory: Clear to auscultation bilaterally, Normal air movement Cardiovascular: Regular rate/rhythm, Normal S1 S2, No murmurs Gastrointestinal: Normal bowel sounds, Soft and benign, Non-distended, No tenderness Musculoskeletal: No clubbing, No swelling, No tenderness Integumentary: No rashes Neurological: Normal gait, Normal speech, Normal strength at 5/5 x4 extr, Normal tone, Sensation intact, Cranial nerves 3-12 intact, Normal affect Lymphatics: No axilla or inguinal lymphadenopathy - Studies Laboratory Data (last 24 hrs) 11/08/17 16:50: WBC 8.3, Hgb 12.1 L, Hct 37.5 L, Plt Count 226 11/08/17 16:50: Sodium 135 L, Potassium 4.7, BUN 27 H, Creatinine 2.60 H, Glucose 253 H, Total Bilirubin 0.3, AST 15, ALT 11 L, Alkaline Phosphatase 69 Assessment & Plan - Problems (Diagnosis) (1) Cellulitis of right foot Onset Date: 11/09/17 Current Visit: No Status: Acute (2) Diabetes mellitus Onset Date: 11/09/17 Current Visit: No Status: Acute Qualifiers: Diabetes mellitus type: type 2 (3) Diabetes Onset Date: 07/12/16 Current Visit: No Status: Chronic Qualifiers: Diabetes mellitus type: type 2 Diabetes mellitus halfway insulin use: with halfway use Diabetes mellitus complication status: without complication Qualified Code(s): E11.9 - Type 2 diabetes mellitus without complications; Z79.4 - jail (current) use of insulin (4) Essential hypertension Onset Date: 07/12/16 Current Visit: No Status: Chronic (5) Hyperlipidemia Onset Date: 07/12/16 Current Visit: No Status: Chronic Qualifiers: Hyperlipidemia type: unspecified Qualified Code(s): E78.5 - Hyperlipidemia , unspecified (6) Hypothyroidism Onset Date: 07/12/16 Current Visit: No Status: Chronic Qualifiers: Hypothyroidism type: acquired Qualified Code(s): E03.9 - Hypothyroidism, unspecified (7) Osteomyelitis Current Visit: No Status: Resolved (8) Ulcer of left great toe due to diabetes mellitus Current Visit: No Status: Resolved - Plan Plan: 1. Continue with IV antibiotic 2. Continue with local wound care 3. Surgical consultation 4. Gentle IV hydration 5. Monitor CBC 6. Strict blood sugar monitoring 7. Pain control 8. GI and DVT prophylaxis - Advance Directives Does patient have a Living Will: No Does patient have a Durable POA for Healthcare: No - Code Status/Comfort Care Code Status Assessed: Yes Code Status: Full Code Critical Care: No Time Spent Managing PTS Care (In Minutes): 50
[2017-11-09 10:16] LABS: Urine Appearance CLOUDY; Urine Bilirubin NEGATIVE (NEG); Urine Blood NEGATIVE (NEG); Urine Color YELLOW; Urine Glucose NEGATIVE (NEG); Urine Protein TRACE (NEG); Urine Specific Gravity 1.025 (1.005-1.030); Urine Urobilinogen 0.2 mg/dL (0.2-1.0); Urine pH 5.5 (5.0-7.0)
[2017-11-09 10:25] LABS: Urine Microscopic Reflex ORDER UMIC
[2017-11-09 10:33] LABS: Urine Amorphous Sediment 3+ /HPF (NONE SEEN); Urine Bacteria NONE SEEN /HPF (NONE SEEN); Urine Culture Reflex Order NOT NEEDED; Urine RBC NONE SEEN /HPF (NONE SEEN)
[2017-11-09] MEDS ORDERED: COLLAGENASE 30 GM OINTMENT TOP ONE (10:52)
[2017-11-09] MEDS ORDERED: PROPOFOL 200 MG/20 ML VIAL IV ONE (11:06)
[2017-11-09] MEDS ORDERED: MIDAZOLAM HCL 2 MG/2 ML INJ ONE (11:06)
[2017-11-09] MEDS ORDERED: LIDOCAINE 1% MPF 5 ML VIAL ONE (11:06)
--- NOTE | 2017-11-09 11:53 | P.OP ---
Preoperative diagnosis: R 5th toe osteo and cellulitis Postoperative diagnosis: Same Primary procedure: R 5th Toe T-M Amputation Anesthesia: gen Estimated blood loss: min Specimen: c&s, bone and toe Findings: as above Complications: None Transferred to: Recovery Room Condition: Good
[2017-11-09] MEDS ORDERED: HYDROCODONE/APAP 7.5/325 MG TAB PO PRN (12:12)
[2017-11-09] MEDS ORDERED: HYDROMORPHONE HCL 1 MG/ML INJ IV PRN (12:12)
--- NOTE | 2017-11-09 13:25 | PREOPCON ---
Date of Consultation: 11/09/2017 Reason For Consultation: Infection, right foot. History Of Present Illness: The patient is a 67-year-old gentleman who presented to the [facility] yesterday with worsening of infection on his right foot. He was on oral antibiotics. When I saw him, the ulcer on the right plantar aspect was going all the way from the plantar aspect of the dorsum and there was redness and as the patient has failed outpatient oral antibiotic therapy, I adv ised him to go to the emergency room. He was admitted started on IV antibiotics and x-ray shows bone destructive osteomyelitis of the fifth metatarsal bone head as well as the proximal phalanx. Theref ore, I was consulted. He is awake, alert, has neuropathy. Did not feel much pain. No fever or chil ls and no purulent discharge. Review of Systems: Otherwise unremarkable. Past Medical History: Significant for type 2 diabetes, chronic renal insufficiency, hypercholesterol emia, GERD. Past Surgical History: Previous amputation of the right second metatarsal and toe. Allergies: NO ALLERGIES. Social History: He does not smoke. He does not drink. Physical Examination: Vital Signs: Stable. He is afebrile. He is awake, alert, and oriented x3. Head and Neck: Cranial nerves 2 through 12 are grossly within normal limits. No neck masses. No JV D. Throat clear. Neck is supple. Chest: Clear. Heart: S1, S2. Abdomen: Soft. Extremities: Palpable dorsalis pedis and posterior tibial pulses. On the right lateral foot, there is erythema. On the dorsum of the foot, there is an ulcer on the plantar aspect approximately 1.5 to 2 cm. There is some warmth to it. There is no purulent discharge and there is tunneling from the p lantar aspect all the way to the dorsum. Laboratory Data: His sedimentation rate is 65. His white count is normal. He has chronic renal suf ficiency with slightly elevated BUN and creatinine. His C-reactive is 64.3. The lactic acid is 1.6. X-ray shows bone destructive osteomyelitis distal fifth metatarsal and very likely within the base of the fifth proximal phalanx. Assessment: Osteomyelitis, right foot with bone destructive osteomyelitis and cellulitis. Recommendations: IV antibiotics n.p.o. to the OR for right fifth toe transmetatarsal amputation. Th e patient understands the risks, benefits, and alternatives and agrees to procedure. RYAN/ALICIA Voice ID: [id number] Report ID: [id number]
--- NOTE | 2017-11-09 15:41 | P.PN ---
Subjective Date of Service: 11/09/17 Chief Complaint: Cellulitis of the right foot doing well after surgery Physical Examination - Vital Signs Temperature: 98.0 F Blood Pressure: 124/69 Pulse: 63 Respirations: 16 Pulse Ox (%): 94 - Physical Exam General: Alert, In no apparent distress HEENT: Atraumatic, PERRLA, EOMI Neck: Supple, JVD not distended Respiratory: Clear to auscultation bilaterally, Normal air movement Cardiovascular: Regular rate/rhythm, Normal S1 S2 Gastrointestinal: Normal bowel sounds, No tenderness Musculoskeletal: No tenderness Integumentary: No rashes Neurological: Normal speech, Normal tone, Normal affect Lymphatics: No axilla or inguinal lymphadenopathy - Studies Laboratory Data (last 24 hrs) 11/08/17 16:50: WBC 8.3, Hgb 12.1 L, Hct 37.5 L, Plt Count 226 11/08/17 16:50: Sodium 135 L, Potassium 4.7, BUN 27 H, Creatinine 2.60 H, Glucose 253 H, Total Bilirubin 0.3, AST 15, ALT 11 L, Alkaline Phosphatase 69 Medications List Reviewed: Yes Assessment And Plan - Current Problems (Diagnosis) (1) Cellulitis of right foot Onset Date: 11/09/17 Current Visit: Yes Status: Acute (2) Diabetes mellitus Onset Date: 11/09/17 Current Visit: Yes Status: Chronic Qualifiers: Diabetes mellitus type: type 2 Diabetes mellitus [facility] insulin use: with [facility] use Diabetes mellitus complication status: without complication Qualified Code(s): E11.9 - Type 2 diabetes mellitus without complications; Z79.4 - exterminator (current) use of insulin - Plan --s/p 5th amputation --cont Vanco Zosyn --PICC --May DC home on Vanco soon, needs 2 weeks ABX --Insulin
--- NOTE | 2017-11-09 20:46 | CON ---
History Of Present Illness: This is a 67-year-old male, I was consulted for cellulitis and osteomyel itis of the right foot. The patient had surgical debridement done earlier today and amputation of th e small toe by surgical team. The patient is feeling better today. Denies any headache, nausea, vom iting, chest pain, abdominal pain, constipation, or diarrhea. Has significant history of diabetic ne uropathy and does not feel any pain down on his feet. Currently on IV antibiotic. Has no known estelle rgies. Past Medical History: Diabetes, diabetic neuropathy, hypothyroidism, diabetic foot ulcer, Shane es ophagus, gastroesophageal reflux disease, amputation of right 2nd toe, cholecystectomy, tooth implant . Surgical History: As above. Social History: Nonsmoker, nondrinker. Family History: Noncontributory. Medications: Vancomycin and Zosyn. See MARs for other medication. Allergies: NO KNOWN DRUG ALLERGIES. Review of Systems: A 10-point review was performed. Physical Examination: General: This is a 67-year-old male, lying in bed, not in any acute distress. Vital Signs: Temperature 98, pulse 63, respirations 16, blood pressure 124/69. HEENT: Unremarkable . Neck: Supple. Lungs: Clear to auscultation. Heart: S1, S2. Regular. Abdomen: Soft, nontender. Bowel sounds positive. Extremities: Right foot in surgical dressing, status post surgery done today. Laboratory Data: Shows WBC 8.3, hemoglobin 12.1, platelet 226. Chemistry shows sodium 135, potassiu m 4.7, chloride 106, bicarb 23, BUN 27, creatinine 2.6, glucose is 253. X-ray shows bone destructive osteomyelitis distal 5th metatarsal and very likely within the base of the 5th proximal phalanx. Assessment And Plan: Osteomyelitis of 5th metatarsal and phalanx with cellulitis of right foot statu s post amputation of infected bone. Continue antibiotic and supportive care. We will open the wound dressing tomorrow to evaluate the wound. Continue IV antibiotic and better sugar control. We will follow the patient closely. Thank you for consult. HILL/ALICIA Voice ID: [id number] Report ID: [id number]
[2017-11-09] MEDS: PANTOPRAZOLE 40MG TABLET PO SCH (21:00)
[2017-11-09] MEDS ORDERED: VANCOMYCIN 1GM/D5W 1 GM/200 ML BAG IV ONE (21:00)
[2017-11-09] MEDS: ATORVASTATIN 20 MG TAB PO SCH (22:50)
[2017-11-09] MEDS: GLIPIZIDE S.A. 5 MG TAB PO SCH (22:50)
--- NOTE | 2017-11-10 00:25 | OP ---
Date of Procedure: 11/09/2017 Surgeon: Felice Chaidez MD Preoperative Diagnoses: Osteomyelitis, cellulitis, and nonhealing wound on the right fifth toe. Postoperative Diagnoses: Osteomyelitis, cellulitis, and nonhealing wound on the right fifth toe. Procedure: Right fifth toe transmetatarsal amputation. Estimated Blood Loss: Minimal. Specimen: Culture and sensitivity bone for C and S as well and the right fifth toe and metatarsal he ad. Findings: As above. Anesthesia: General. Complications: None. Disposition: The patient tolerated the procedure in stable condition and taken to Recovery in good g eneral condition. Procedure In Detail: The patient was brought to the OR and placed in supine position. General anest hesia was begun. The patient was prepped and draped in usual sterile fashion. Marcaine 0.5% was inf iltrated locally. An ellipse of skin incision made around the base of the fifth toe and including th e infected ulcer which I tunneled all the way to the dorsum and this dissection proceeded all the way down to the metatarsal head. Metatarsal head was so infected, it just fell apart when I went down t here. This was removed. The metatarsal bone was dissected further until healthy bone was encountere d and it was divided with a bone cutter and the entire wound was irrigated and bleeding was controlle d with cautery. Part of the wound was closed with 2-0 nylon interrupted sutures and majority of the wound was left open because of the infection and sterile dressing with collagenase was applied. The patient tolerated procedure in stable condition and taken to Recovery in good gener al condition. /MODL Voice ID: [id number] Report ID: [id number]
[2017-11-10] MEDS: PIPER/TAZO/NS 3.375gm 3.375 GM/100 ML BAG IV SCH ×3 (01:00→16:18)
[2017-11-10 05:21] LABS: Absolute Lymphocytes (CBC) 2.2 K/uL (0.7-4.9); Absolute Monocytes 0.9 K/uL (0.1-1.3); Absolute Neutrophil 4.1 K/uL (1.8-8.0); Basophils % 0.5 % (0-1.3); Eosinophils % 2.7 % (0-4.4); Hematocrit 33.2 % (39.6-49.0); Lymphocytes % 30.1 % (15.3-44.8); MCV 84.7 fL (80-100); MPV 9.1 fL (7.6-11.3); Monocytes % 11.7 % (3.3-12.3); RBC Red Blood Cell Count 3.92 M/uL (4.33-5.43)
[2017-11-10 05:45] LABS: Albumin 2.9 g/dL (3.4-5.0); Bilirubin Total 0.2 mg/dL (0.2-1.0); Potassium 4.1 mmol/L (3.5-5.1); Protein, Total 7.3 g/dL (6.4-8.2)
[2017-11-10] MEDS: LEVOTHYROXINE SOD 0.075 MG TAB PO SCH (05:48)
[2017-11-10] MEDS: LEVOTHYROXINE SOD 0.1 MG TAB PO SCH (05:48)
[2017-11-10] MEDS ORDERED: HOME MED 1 EA UNK (Levothyroxine Sodium [Levothyroxine Sodium] 175 MCG) PO SCH (06:00)
--- NOTE | 2017-11-10 06:36 | RAD REPORT ---
EXAM DESCRIPTION: RAD - Chest Single View - 11/10/2017 1:17 am CLINICAL HISTORY: PICC line placement A preliminary report was provided at the time of the study and reviewed prior to final report. COMPARISON: June 2016 FINDINGS: Portable chest was obtained following placement of a right upper extremity PICC line. Cath eter overlies the superior SVC region with an acute angulation to the distal 1.5 cm. This likely sumit cates the tip has extended into the azygos vein. Brachiocephalic vein positioning is possible as well .
--- NOTE | 2017-11-10 06:37 | RAD REPORT ---
EXAM DESCRIPTION: RAD - Chest Single View - 11/10/2017 3:01 am CLINICAL HISTORY: PICC line placement A preliminary report was provided at the time of the study and reviewed prior to final report. COMPARISON: November 10 FINDINGS: Portable chest was obtained following placement of a right upper extremity PICC line. Cath eter tip has been adjusted but still shows an angulation that supports positioning in the azygos vein .
--- NOTE | 2017-11-10 06:39 | RAD REPORT ---
EXAM DESCRIPTION: RAD - Chest Single View - 11/10/2017 4:37 am CLINICAL HISTORY: PICC line placement COMPARISON: November 10 imaging FINDINGS: Portable chest was obtained following placement of a right upper extremity PICC line. The catheter tip is in the mid SVC. The angulation of the tubing has been corrected.
[2017-11-10] MEDS: NA CHLORIDE 0.9% 1,000 ML IV SCH ×2 (07:39→16:18)
[2017-11-10] MEDS ORDERED: VANCOMYCIN 1.75 GM in NA CHLORIDE 0.9% 500 ML IV SCH (09:00)
[2017-11-10] MEDS: BIOTIN 1000 MCG PO SCH (09:00)
[2017-11-10] MEDS ORDERED: VANCOMYCIN/NS 1 gm 2 GM/500 ML BAG IVPB SCH (09:00)
[2017-11-10] MEDS: GLIPIZIDE S.A. 5 MG TAB PO SCH ×2 (09:37→22:06)
--- NOTE | 2017-11-10 13:45 | PN ---
Date of Progress Note: 11/10/2017 Subjective: The patient is awake, alert. No complaint. Objective: Vital Signs: Stable, afebrile. Cultures pending Extremities: Dressing is clean, dry, a nd intact. Assessment: Status post right fifth toe transmetatarsal amputation. Recommendations: Continue IV antibiotics. Check cultures. Adjust antibiotics accordingly. The pat ient will need long-term antibiotics and a wound VAC and discharge planning. /MODL Voice ID: [id number] Report ID: [id number]
--- NOTE | 2017-11-10 17:41 | P.PN ---
Subjective Date of Service: 11/10/17 Chief Complaint: Cellulitis of the right foot doing well today, better with pain control. no new complaints. Physical Examination - Vital Signs Temperature: 98.1 F Blood Pressure: 118/64 Pulse: 68 Respirations: 18 Pulse Ox (%): 96 - Physical Exam General: Alert, In no apparent distress HEENT: Atraumatic, PERRLA, EOMI Neck: Supple, JVD not distended Respiratory: Clear to auscultation bilaterally, Normal air movement Cardiovascular: Regular rate/rhythm, Normal S1 S2 Gastrointestinal: Normal bowel sounds, No tenderness Musculoskeletal: No tenderness Integumentary: No rashes Neurological: Normal speech, Normal tone, Normal affect Lymphatics: No axilla or inguinal lymphadenopathy - Studies Medications List Reviewed: Yes Assessment And Plan - Current Problems (Diagnosis) (1) Cellulitis of right foot Onset Date: 11/09/17 Current Visit: Yes Status: Acute (2) Diabetes mellitus Onset Date: 11/09/17 Current Visit: Yes Status: Chronic Qualifiers: Diabetes mellitus type: type 2 Diabetes mellitus care home insulin use: with care home use Diabetes mellitus complication status: without complication Qualified Code(s): E11.9 - Type 2 diabetes mellitus without complications; Z79.4 - extermination supervisor (current) use of insulin - Plan --s/p 5th amputation --cont Vanco / Zosyn --PICC placed --DC home on [facility] tomorrow -- needs 2 weeks ABX --Cont Insulin
[2017-11-10] MEDS: ATORVASTATIN 20 MG TAB PO SCH (22:03)
[2017-11-10] MEDS: PANTOPRAZOLE 40MG TABLET PO SCH (22:06)
[2017-11-11] MEDS: PIPER/TAZO/NS 3.375gm 3.375 GM/100 ML BAG IV SCH ×3 (00:03→16:39)
[2017-11-11] MEDS: NA CHLORIDE 0.9% 1,000 ML IV SCH ×2 (00:03→11:00)
[2017-11-11 00:32] VITALS: BMI 32.1
[2017-11-11] MEDS: LEVOTHYROXINE SOD 0.1 MG TAB PO SCH (05:14)
[2017-11-11] MEDS: LEVOTHYROXINE SOD 0.075 MG TAB PO SCH (05:14)
[2017-11-11] MEDS: GLIPIZIDE S.A. 5 MG TAB PO SCH (08:34)
[2017-11-11] MEDS: BIOTIN 1000 MCG PO SCH (08:36)
[2017-11-11] MEDS ORDERED: PNEUMOCOCCAL VACCINE 0.5 ML IMVAC ONE (09:00)
[2017-11-11 10:17] VITALS: O2SAT 96
--- NOTE | 2017-11-11 13:55 | PN ---
Date of Progress Note: 11/11/2017 Subjective: The patient is awake, alert. No complaint. Objective: Vital Signs: Stable, afebrile. Diagnostic Data: Wound cultures from the were reviewed and essentially is strep organism sensit giuseppe to vancomycin. His dressing is clean, dry, intact. Assessment: Osteomyelitis, right foot status post right foot transmetatarsal amputation. Recommendation: Vancomycin is ordered. Wound care is ordered. Follow up with [facility] next week. The patient cleared for discharge. /MODL Voice ID: [id number] Report ID: [id number]
--- NOTE | 2017-11-11 15:09 | P.DS ---
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 Wound culture is negative. He is dischraged home on IV Vancomycin x 2 weeks. Vital Signs/Physical Exam: Temp Pulse Resp BP Pulse Ox 98.3 F 61 18 161/78 H 95 11/11/17 12:00 11/11/17 12:00 11/11/17 12:00 11/11/17 12:00 11/11/17 12:00 General: Alert, In no apparent distress HEENT: Atraumatic, PERRLA, EOMI Neck: Supple, JVD not distended Respiratory: Clear to auscultation bilaterally, Normal air movement Cardiovascular: Regular rate/rhythm, Normal S1 S2 Gastrointestinal: Normal bowel sounds, No tenderness Musculoskeletal: No tenderness, Other (s/p 5th toe amputation) Integumentary: No rashes Neurological: Normal speech, Normal tone, Normal affect Lymphatics: No axilla or inguinal lymphadenopathy Laboratory Data at Discharge: WBC 7.5 K/uL (4.3-10.9) 11/10/17 04:20 Hgb 11.0 g/dL (13.6-17.9) L 11/10/17 04:20 Hct 33.2 % (39.6-49.0) L 11/10/17 04:20 Plt Count 222 K/uL (152-406) 11/10/17 04:20 Sodium 138 mmol/L (136-145) 11/10/17 04:20 Potassium 4.1 mmol/L (3.5-5.1) 11/10/17 04:20 BUN 25 mg/dL (7-18) H 11/10/17 04:20 Creatinine 2.00 mg/dL (0.55-1.3) H 11/10/17 04:20 Glucose 219 mg/dL (74-106) H 11/10/17 04:20 Total Bilirubin 0.2 mg/dL (0.2-1.0) 11/10/17 04:20 AST 19 U/L (15-37) 11/10/17 04:20 ALT 13 U/L (12-78) 11/10/17 04:20 Alkaline Phosphatase 61 U/L (45-117) 11/10/17 04:20 Home Medications: Glipizide [Glipizide Xl] 5 mg PO BID 09/05/14 Lovastatin [Mevacor*] 40 mg PO BEDTIME 09/05/14 Omeprazole [Prilosec] 40 mg PO BEDTIME 09/05/14 Biotin 1,000 mcg PO DAILY 09/13/14 Levothyroxine Sodium 175 mcg PO [id number] 09/13/14 Diet: ADA Activity: Ad symone Time spent managing pt's care (in minutes): 35
--- NOTE | 2017-11-11 16:17 | PN ---
Subjective: The patient lying in bed. No new acute events. Chart reviewed. The patient wound with good healthy granulation tissue and some bleeding noticed at the wound dressing and at the wound sit e. Objective: Vital Signs: Temperature 97.1, pulse 67, respirations 16, blood pressure 173/84. Lungs: Some basal crackles. Heart: S1, S2. Regular. Abdomen: Soft, nontender. Bowel sounds positive. Extremities: Right foot wound with good granulation tissue. No edema noted. Some hyperpigmentation surrounding the wound site. Laboratory Data: WBC 7.5, hemoglobin 11, platelets are 222. Chemistry shows sodium 138, potassium 4 .1, chloride 107, bicarb 26, BUN 25, creatinine 2, glucose of 219. Micro data, blood cultures negati ve for 24 hours. Wound site cultures, normal skin tomas. Assessment And Plan: Status post amputation of right fifth phalanx and metatarsal head. The patient 's wound is with good granulation tissue with bleeding noted at the dressing and at the wound site. We will recommend Medihoney with alginate for few days before starting the wound VAC. The patient is currently being treated with vancomycin and Zosyn. Continue antibiotic and supportive care. We mago l recommend keeping the leg elevated and not ambulating and driving at this point. Recommend may be skilled facility or a home health service. The patient can keep his legs elevated. HILL/ALICIA Voice ID: [id number] Report ID: [id number]
[2017-11-11 16:53] VITALS: BP 184/87; TEMP 97.5
== END 2017-11-11 18:21 | DRG 617 ==
LOC: ER 14:58 → ERHOLD 17:22 → 2ND 19:41
PROVIDERS: ADMIT Internal Medicine Hematology & Oncology; ATTEND Internal Medicine Hematology & Oncology
PROC: 0Y6X0Z0 Detachment at Right 5th Toe, Complete, Open Approach (ICD-10-PCS; principal; 2017-11-09 11:45)
PROC: 02HV33Z Insertion of Infusion Device into Superior Vena Cava, Percutaneous Approach (ICD-10-PCS; 2017-11-10)
DX: E11.69 Type 2 diabetes mellitus with other specified complication (principal); M86.171 Other acute osteomyelitis, right ankle and foot; L03.031 Cellulitis of right toe; Z79.84 Long term (current) use of oral hypoglycemic drugs; E11.621 Type 2 diabetes mellitus with foot ulcer; L97.511 Non-pressure chronic ulcer of other part of right foot limited to breakdown of skin; E11.40 Type 2 diabetes mellitus with diabetic neuropathy, unspecified; E03.9 Hypothyroidism, unspecified; K21.9 Gastro-esophageal reflux disease without esophagitis; K22.70 Barrett's esophagus without dysplasia; E11.22 Type 2 diabetes mellitus with diabetic chronic kidney disease; N18.9 Chronic kidney disease, unspecified
CPT/HCPCS: 36415; 71045; 80048; 80053; 80076; 80202; 81003; 81015; 82962; 83605; 85025; 85652; 86140; 87040; 87070; 87075; 87176; 87205; 88305; 88311; 96365; 96367; 99213; 99285; J2250; J2543; J3370; J3590; J7030